=== PATIENT | male | born 1955 | race Two or more races ===

== ENCOUNTER 2017-10-10 07:07 | Day surgery (SDC) ==
[2017-10-10] MEDS ORDERED: LIDOCAINE 1% 20 ML MDV ID STA (07:57)
[2017-10-10] MEDS ORDERED: DIPRIVAN 20 ML VIAL IVP ONE (09:40)
[2017-10-10] MEDS ORDERED: VERSED ONE (09:40)
[2017-10-10 14:49] VITALS: BP 126/78; TEMP 98.5
--- NOTE | 2017-10-11 11:04 | OP ---
PROCEDURE: COLONOSCOPY TO CECUM WITH SNARE POLYPECTOMY. ENDOSCOPIST: Albert HOOPER M.D. 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 MEDICATION: PER ANESTHESIA. PROCEDURE: The patient was positioned for colonoscopy. The digital rectal exam was negative. The colonoscope was inserted through the anus and advanced to the cecum. The cecum was identified using the ileocecal valve and the appendiceal orifice as landmarks. The scope was slowly withdrawn through an adequately prepped colon. [place] Prep Score 2+2+2=6. Diverticulosis noted throughout the left colon. In the rectum a small polyp removed using snare cautery. Retroflex exam was otherwise normal. Withdraw time 9 minute and 4 seconds. PLAN: 1. Review pathology 2. Repeat exam in 5 years if this is an adenomatous or 10 years if it is hyperplastic. CC: Dr. Deonte LANCE
== END 2017-10-10 10:35 | disposition home or self-care (01) ==
LOC: SURG 07:07
PROVIDERS: ATTEND Internal Medicine Gastroenterology
DX: Z12.11 Encounter for screening for malignant neoplasm of colon (principal); K63.5 Polyp of colon; K57.30 Diverticulosis of large intestine without perforation or abscess without bleeding